=== PATIENT | female | born 1980 | race American Indian/Alaskan Native ===

== ENCOUNTER 2017-11-10 05:49 | Inpatient (IN) | payer BC ==
[2017-11-05 14:09] VITALS: BMI 28.5
[2017-11-10] MEDS ORDERED: Vasopressin 20 Units/ml Inj ONE (07:14)
[2017-11-10] MEDS ORDERED: cefOXitin IV 1 gm in Dextrose 2 GM/100 ML BAG IVPB ONE (07:14)
[2017-11-10] MEDS ORDERED: Sodium Chloride 0.9% 40 ML IV ONE (07:15)
[2017-11-10] MEDS ORDERED: Midazolam 2 MG/2 ML VIAL ONE (07:49)
[2017-11-10] MEDS ORDERED: Propofol 10 mg/ml Inj (20 ML) ONE (07:49)
[2017-11-10] MEDS ORDERED: Succinylcholine Chloride 20 mg/ml Syr (5 ml) IV ONE (07:50)
[2017-11-10] MEDS ORDERED: Sodium Chloride 0.9% 1,000 ML IV ONE ×2 (07:50→08:45)
[2017-11-10] MEDS ORDERED: Lidocaine Hydrochloride 5 ML INJ ONE (07:50)
[2017-11-10] MEDS ORDERED: Lactated Ringer's 1,000 ML IV ONE ×2 (07:50→09:35)
[2017-11-10] MEDS ORDERED: Rocuronium 10 mg/ml (5 ml) ONE ×2 (07:50→09:01)
[2017-11-10] MEDS ORDERED: Neostigmine Methylsulfate 3mg/3ml Syringe IV ONE (09:14)
[2017-11-10] MEDS ORDERED: Sodium Chloride 0.9% 800 ML IV ONE (09:35)
[2017-11-10] MEDS ORDERED: ceFAZolin IV 2 gm in Dextrose 2 GM/50 ML BAG IVPB SCH (10:00)
[2017-11-10] MEDS ORDERED: ceFAZolin IV 2 gm in Dextrose 2 GM/50 ML BAG IVPB ONE ×2 (12:13→19:33)
[2017-11-10] MEDS: Lactated Ringer's 1,000 ML IV SCH ×2 (14:15→17:30)
--- NOTE | 2017-11-10 19:13 | OP ---
PROCEDURE DATE: 11/10/2017 PREOPERATIVE DIAGNOSES: Rectocele, fibroid uterus, menorrhagia. POSTOPERATIVE DIAGNOSES: Rectocele, fibroid uterus, menorrhagia. PROCEDURES: Exploratory laparotomy, myomectomy, and posterior colporrhaphy. SURGEON: Hector Rangel MD SQUAD BOSS: Faustino Clinton MD ESTIMATED BLOOD LOSS: 200 mL COMPLICATIONS: Nil. DESCRIPTION OF PROCEDURE: After the risks, benefits, and alternatives of the planned procedures, including but not limited to infection, hemorrhage, deep vein thrombosis, atelectasis, pneumonia, pulmonary embolism, damage to the bladder, damage to the ureter, renal insufficiency, renal failure, wound infection, recurrence of both the rectocele and fibroids have been explained to the patient and all her questions answered and informed consent was obtained. The patient was taken to the operating room in a stable condition. Under a suitable level of general anesthesia, she was prepped and draped in a sterile fashion after having been placed in a supine position. The abdomen was entered through a Pfannenstiel-type incision, carried through the subcutaneous tissues to the fascia. Fascia was opened transversely and dissected off the rectus abdominis musculature. The rectus abdominis musculature was then in the midline to remove the parietal peritoneum, which was entered sharply and incised superiorly and inferiorly. The uterus was about 18-weeks in size, multifibroid with normal tubes and ovaries. Posterior wall of the uterus was then infiltrated using Pitressin and a total of 3 intramural myomas were enucleated without entry into the endometrial cavity. The excision site was then closed in 4 layers with the first 3 layers being interrupted layer using 0 Vicryl suture and the superficial myometrium and serosa being closed using 0 Vicryl suture in a baseball stitch fashion. Hemostasis was good. Peritoneal cavity was then irrigated using copious amounts of saline. The saline was evacuated. The abdomen was then closed in layers with 0 chromic to the parietal peritoneum. Rectus muscles were reapproximated using interrupted sutures of 0 chromic. Fascia was reapproximated using 2 separate running sutures of 0 Vicryl to meet in the midline. Subcutaneous tissues were reapproximated using interrupted sutures of 0 plain and the initial skin incision was reapproximated using 4-0 Vicryl in a subcuticular fashion. The patient was then repositioned into a dorsal lithotomy position. Incision was made over the posterior fourchette at the junction between the vaginal mucosa and the peritoneum and a developed within the posterior vaginal mucosa and rectum. The pararectal tissue was then reapproximated and plicated over the rectocele to reduce it as there was a second degree rectocele. The redundant vaginal mucosa was then trimmed and the vaginal mucosa was then reapproximated over the rectum using random suture of 2-0 Vicryl suture. At the end of the procedure, there was good hemostasis. Total estimated blood loss was 200 mL. Sponge, needle, and instrument counts were correct x2. There were no complications. Hector Rangel MD
[2017-11-10] MEDS: ceFAZolin IV 2 gm in Dextrose 2 GM/50 ML BAG IVPB SCH (19:37)
[2017-11-11] MEDS ORDERED: ceFAZolin IV 2 gm in Dextrose 2 GM/50 ML BAG IVPB ONE (03:54)
[2017-11-11] MEDS: ceFAZolin IV 2 gm in Dextrose 2 GM/50 ML BAG IVPB SCH (03:58)
[2017-11-11 07:44] LABS: BLOOD UREA NITROGEN 11 mg/dL (7-17); CALCIUM 8.7 mg/dl (8.6-10.4); GFR AFRICAN-AMERICAN > 60; GFR NON-AFRICAN AMERICAN > 60
[2017-11-11 08:01] LABS: BASO % 0.3 % (0.0-2.0); EOS % 0.1 % (0.0-4.0); HEMOGLOBIN 12.7 g/dL (11.0-16.0); LYMPH # 1.3 K/uL (1.0-4.3); LYMPH % 15.2 % (20.0-40.0); MEAN CELL VOLUME 90.4 fL (81.0-99.0); MEAN CORPUSCULAR HEMOGLOBIN 31.8 pg (27.0-31.0); MEAN CORPUSCULAR HGB CONC 35.2 g/dL (33.0-37.0); MEAN PLATELET VOLUME 7.9 fL (7.2-11.7); MONO # 0.7 K/uL (0.0-0.8); MONO % 8.5 % (0.0-10.0); NEUT # 6.4 K/uL (1.8-7.0); NEUT % 75.9 % (50.0-75.0); RBC 3.99 Mil/uL (3.80-5.20); RED CELL DISTRIBUTION WIDTH 13.2 % (11.5-14.5); WHITE BLOOD COUNT 8.5 K/uL (4.8-10.8)
[2017-11-11] MEDS: Enoxaparin 40 mg Syringe SC SCH (10:52)
[2017-11-11] MEDS: Oxycodone/Acetaminophen 5/325 mg Tab PO PRN ×3 (11:20→21:28)
--- NOTE | 2017-11-11 11:49 | PN ---
DATE: SUBJECTIVE: The patient has no complaints. OBJECTIVE VITAL SIGNS: Stable. She is afebrile. ABDOMEN: Incision is clean and intact. Bowel sounds are present. EXTREMITIES: Nontender. No evidence of DVT. CHEST: Clear. CARDIAC: Reveals normal heart sounds without any murmurs. LUNGS: Clear. ASSESSMENT: The patient is status post myomectomy and posterior colporrhaphy. PLAN: To ambulate the patient. Advance diet. Hector Rangel MD
[2017-11-11] MEDS: Simethicone 80 mg Chewtab PO SCH ×4 (13:53→21:29)
[2017-11-12 08:45] VITALS: BP 98/64; PULSE 86; RESP 18; TEMP 98.9; O2SAT 99
[2017-11-12] MEDS: Enoxaparin 40 mg Syringe SC SCH (10:15)
--- NOTE | 2017-11-12 11:54 | PN ---
DATE: 11/12/2017 SUBJECTIVE: The patient had a bowel movement. She has no complaints. She is afebrile. OBJECTIVE: VITAL SIGNS: Stable. She is afebrile. CHEST: Clear. CARDIAC: Reveals normal heart sounds without any murmurs. LUNGS: Clear. ABDOMEN: Abdomen incision is clean and intact. Bowel sounds are normal. EXTREMITIES: Nontender with no evidence of DVT. ASSESSMENT: The patient is status post myomectomy, posterior colporrhaphy day 2. PLAN: Discharge the patient on Colace 100 mg b.i.d. x30 days, Tylenol No. 3 two tablets q.4 hours p.r.n. for a total of 40 tablets, and Keflex 500 mg q.i.d. x7 days to be followed up in the office in 1 week. Hector Rangel MD
== END 2017-11-12 12:30 | disposition home or self-care (01) | DRG 743 ==
LOC: C.9S 05:49 → C.4M 10:09
PROVIDERS: ADMIT Obstetrics & Gynecology Reproductive Endocrinology; ATTEND Obstetrics & Gynecology Reproductive Endocrinology
PROC: 0JQC0ZZ Repair Pelvic Region Subcutaneous Tissue and Fascia, Open Approach (ICD-10-PCS; 2017-11-10)
PROC: 0UB90ZZ Excision of Uterus, Open Approach (ICD-10-PCS; principal; 2017-11-10 07:30)
DX: D25.1 Intramural leiomyoma of uterus (principal); N81.6 Rectocele; N92.0 Excessive and frequent menstruation with regular cycle